=== PATIENT | female | born 1965 | race Two or more races ===

== ENCOUNTER 2017-01-27 08:32 | Emergency (ER) | payer OTHER ==
[2017-01-27 08:35] VITALS: BP 146/87; PULSE 80; TEMP 97.5; BMI 36.6
[2017-01-27] MEDS ORDERED: KETOROLAC TROMETHAMINE 60 MG/2 ML VIAL IM ONE (09:32)
[2017-01-27] MEDS ORDERED: KETOROLAC TROMETHAMINE 60 MG/2 ML VIAL ONE (09:34)
--- NOTE | 2017-01-27 09:47 | PDOC ---
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 now is radiating up to her thoracic spine and into her neck muscles. Denies numbness or tingling to hands or feet, denies any nausea or vomiting, no changes in bowel or bladder Occurred: reports: yesterday Severity: reports: mild, moderate Pain Location: reports: back (low back pain with radiation up to neck) Past History - Travel Traveled outside of the country in the last 30 days: No Close contact w/someone who was outside of country & ill: No - Past Medical History Allergies/Adverse Reactions: Allergies Allergy/AdvReac Type Severity Reaction Status Date / Time No Known Allergies Allergy Verified 01/27/17 08:35 Home Medications: Ambulatory Orders Cyclobenzaprine HCl [Flexeril 10 mg] 10 mg PO BID PRN #14 tablet 01/27/17 Unobtainable 01/27/17 Asthma: Yes Diabetes: Yes - Psycho/Social/Smoking Cessation Hx Anxiety: No Suicidal Ideation: No Smoking Status: No Smoking History: Never smoked Number of Cigarettes Smoked Daily: 0 Hx Alcohol Use: No Drug/Substance Use Hx: No Substance Use Type: None Trauma Specific PMHX - Complaint Specific PMHX Back Injury: Yes Neck Injury: Yes Review of Systems - Review of Systems Able to Perform ROS?: Yes Is the patient limited Argentine proficient: Yes Constitutional: Yes: See HPI. No: Symptoms Reported, Fever, Malaise HEENTM: Yes: See HPI. No: Symptoms Reported Respiratory: Yes: See HPI, Cough Musculoskeletal: Yes: Symptoms Reported, See HPI, Back Pain, Muscle Weakness Neurological: Yes: See HPI. No: Symptoms reported, Headache All Other Systems: Reviewed and Negative *Physical Exam - Vital Signs Last Vital Signs Temp Pulse Resp BP Pulse Ox 97.5 F L 80 18 146/87 98 01/27/17 08:33 01/27/17 08:33 01/27/17 08:33 01/27/17 08:33 01/27/17 08:33 - Physical Exam General Appearance: Yes: Nourished, Appropriately Dressed, Apparent Distress, Mild Distress, Moderate Distress HEENT: positive: CHICO, Normal ENT Inspection, TMs Normal, Pharynx Normal Neck: positive: Tender, Supple. negative: Lymphadenopathy (R), Lymphadenopathy (L) Respiratory/Chest: positive: Lungs Clear, Normal Breath Sounds Cardiovascular: positive: Regular Rate Gastrointestinal/Abdominal: positive: Soft Musculoskeletal: positive: Normal Inspection, Muscle Spasm (palpable spasm and reproduced tenderness along the right paravertebral spinous muscles primarily lumbar spine, with some radiation up through scapular area. No true bony tenderness, range of motion is mildly limited secondary to the spasm. Neurovascular intact to extremities) Extremity: positive: Normal Capillary Refill, Normal Inspection, Normal Range of Motion Integumentary: positive: Normal Color, Dry, Warm Neurologic: positive: cio II-XII NML intact, Fully Oriented, Alert, Normal Mood/ Affect, Normal Response, Motor Strength 11/13 ED Treatment Course - Medications Given in the ED: ED Medications Discontinued Medications Generic Name Dose Route Start Last Admin Trade Name Freq PRN Reason Stop Dose Admin Ketorolac Tromethamine 60 mg 01/27/17 09:32 01/27/17 09:30 Toradol Injection - IM 01/27/17 09:33 60 mg ONCE ONE Administration Progress Note - Progress Note Progress Note: Back strain, will treat with NSAIDs and cyclobenzaprine *DC/Admit/Observation/Transfer Diagnosis at time of Disposition: Low back strain Qualifiers: Encounter type: initial encounter Qualified Code(s): S39.012A - Strain of muscle, fascia and tendon of lower back, initial encounter - Discharge Dispostion Disposition: HOME Condition at time of disposition: Stable Admit: No - Prescriptions Prescriptions: Cyclobenzaprine HCl [Flexeril 10 mg] 10 mg PO BID PRN #14 tablet PRN Reason: spasm - Patient Instructions Printed Discharge Instructions: DI for Back Strain or Sprain Additional Instructions: Rest, no heavy lifting or exercise until pain is resolved Hot soaks to neck and low back as often as possible/hot showers or Jacuzzis No massage or therapy until spasm is gone Continue ibuprofen 2-200 mg tablets every 6 hours for the next 3 days then as needed for pain and swelling Cyclobenzaprine 1-10mg every 8 hours as needed for spasm If not significant improvement within 24 hours with medication and rest regime, followup with private physician for change in medications and /or therapy. - Post Discharge Activity Work/School Note: Back to Work
== END 2017-01-27 09:53 | disposition home or self-care (01) ==
LOC: JERFT 08:32
PROC: 3E0233Z Introduction of Anti-inflammatory into Muscle, Percutaneous Approach (ICD-10-PCS; principal; 2017-01-27)
DX: S39.012A Strain of muscle, fascia and tendon of lower back, initial encounter (principal); X58.XXXA Exposure to other specified factors, initial encounter; Y93.89 Activity, other specified; Y92.9 Unspecified place or not applicable; Y99.0 Civilian activity done for income or pay; J45.909 Unspecified asthma, uncomplicated; E11.9 Type 2 diabetes mellitus without complications
CPT/HCPCS: 99281-25

== ENCOUNTER 2018-09-15 13:09 | Emergency (ER) | payer OTHER ==
[2018-09-15 13:23] VITALS: BP 101/73; PULSE 90; TEMP 98.3; BMI 33.7
--- NOTE | 2018-09-15 13:58 | PDOC ---
History of Present Illness - General Chief Complaint: Cold Symptoms Stated Complaint: COLD SYMPTOMS Time Seen by Provider: 09/15/18 13:44 History Source: Patient - History of Present Illness Initial Comments: 09/15/18 14:45 52-year-old female with nasal congestion, cough 5-6 days. Patient reports cough increasing. Denies shortness of breath, diaphoresis, chest pain, nausea, vomiting. past medical historu of IDDM Past History - Past Medical History Allergies/Adverse Reactions: Allergies Allergy/AdvReac Type Severity Reaction Status Date / Time No Known Allergies Allergy Verified 01/27/17 08:35 Home Medications: Ambulatory Orders Cyclobenzaprine HCl [Flexeril 10 mg] 10 mg PO BID PRN #14 tablet 01/27/17 Albuterol Sulfate Inhaler - [Ventolin HFA Inhaler -] 1 - 2 inh IH Q4H PRN #1 inhaler 09/15/18 Azithromycin [Zithromax 250mg Tablets -] 250 mg PO UTDICT #6 tab 09/15/18 Benzonatate [Tessalon Pearls -] 100 mg PO TID PRN #10 capsule 09/15/18 Asthma: Yes Diabetes: Yes - Suicide/Smoking/Psychosocial Hx Smoking Status: No Smoking History: Never smoked Have you smoked in the past 12 months: No Number of Cigarettes Smoked Daily: 0 Information on smoking cessation initiated: No Hx Alcohol Use: No Drug/Substance Use Hx: No Substance Use Type: None Review of Systems - Review of Systems Able to Perform ROS?: Yes Is the patient limited [place]oth[place] proficient: No Constitutional: No: Symptoms Reported, See HPI, Chills, Diaphoresis, Fever, Loss of Appetite, Malaise, Night Sweats, Weakness, Weight Stable, Unintentional Wgt. Loss, Unexplained wgt Loss, Other HEENTM: Yes: Nose Congestion Respiratory: Yes: Cough Cardiac (ROS): No: Symptoms Reported, See HPI, Chest Pain, Edema, Irregular Heart Rate, Lightheadedness, Palpitations, Syncope, Chest Tightness, Other ABD/GI: No: Symptoms Reported, See HPI, Abdominal Distended, Abd. Pain w/ defecation, Blood Streaked Bowels, Constipated, Diarrhea, Difficulty Swallowing , Nausea, Poor Appetite, Poor Fluid Intake, Rectal Bleeding, Vomiting, Indigestion, Abdominal cramping, Tarry Stools, Other : No: Symptoms Reported, See HPI, Burning, Dysuria, Discharge, Frequency, Flank Pain, Hematuria, Incontinence, Pain, Urgency, Testicular Mass, Testicular Swelling, Lesions, Testicular Pain, Other *Physical Exam - Vital Signs Last Vital Signs Temp Pulse Resp BP Pulse Ox 98.3 F 90 20 101/73 100 09/15/18 13:19 09/15/18 13:19 09/15/18 13:19 09/15/18 13:19 09/15/18 13:19 - Physical Exam General Appearance: Yes: Appropriately Dressed Respiratory/Chest: positive: Lungs Clear, Normal Breath Sounds Cardiovascular: positive: Regular Rhythm, Regular Rate Gastrointestinal/Abdominal: positive: Normal Bowel Sounds, Soft Musculoskeletal: positive: Normal Inspection Extremity: positive: Normal Capillary Refill, Normal Inspection, Normal Range of Motion Integumentary: positive: Normal Color, Dry, Warm Neurologic: positive: Fully Oriented, Alert, Normal Mood/Affect Moderate Sedation - Procedure Monitoring Vital Signs: Procedure Monitoring Vital Signs Temperature 98.3 F 09/15/18 13:19 Pulse Rate 90 09/15/18 13:19 Respiratory Rate 20 09/15/18 13:19 Blood Pressure 101/73 09/15/18 13:19 O2 Sat by Pulse Oximetry (%) 100 09/15/18 13:19 Progress Note - Progress Note Progress Note: A acute bronchitis P: chest xray albuterol azithromycin *DC/Admit/Observation/Transfer Diagnosis at time of Disposition: Bronchitis - Discharge Dispostion Disposition: HOME - Prescriptions Prescriptions: Albuterol Sulfate Inhaler - [Ventolin HFA Inhaler -] 1 - 2 inh IH Q4H PRN #1 inhaler PRN Reason: Cough Azithromycin [Zithromax 250mg Tablets -] 250 mg PO UTDICT #6 tab Benzonatate [Tessalon Pearls -] 100 mg PO TID PRN #10 capsule PRN Reason: Cough - Referrals Referrals: Amina Mayberry MD [Primary Care Provider] - Call tomorrow - Patient Instructions Printed Discharge Instructions: DI for Acute Bronchitis Additional Instructions: drink plenty of fluids use albuterol inhaler every 4-6 hours as needed for cough take azithromycin as prescribed. follow up with your doctor - Post Discharge Activity Forms/Work/School Notes: Back to Work
[2018-09-15] MEDS ORDERED: ALBUTEROL SO4 0.083% IH SOL 2.5 MG/3 ML VIAL.NEB. NEB ONE ×2 (14:06→14:23)
--- NOTE | 2018-09-17 09:52 | EKG ---
Test Reason : Blood Pressure : / mmHG Vent. Rate : 078 BPM Atrial Rate : 078 BPM P-R Int : 158 ms QRS Dur : 076 ms QT Int : 380 ms P-R-T Axes : 035 040 013 degrees QTc Int : 433 ms NORMAL SINUS RHYTHM CANNOT RULE OUT ANTERIOR INFARCT , AGE UNDETERMINED ABNORMAL ECG NO PREVIOUS ECGS AVAILABLE Confirmed by DYANA REGALADO MD ([id number]) on 09/17/2018 9:52:26 AM Referred By: Confirmed By:DYANA REGALADO MD
== END 2018-09-15 15:12 | disposition home or self-care (01) ==
LOC: JERFT 13:09
PROC: 3E0F7GC Introduction of Other Therapeutic Substance into Respiratory Tract, Via Natural or Artificial Opening (ICD-10-PCS; principal; 2018-09-15)
DX: J40 Bronchitis, not specified as acute or chronic (principal); E10.9 Type 1 diabetes mellitus without complications; Z79.4 Long term (current) use of insulin
CPT/HCPCS: 71046-TC-FY; 93005; 93010; 99281-25

== ENCOUNTER 2018-12-17 00:43 | Emergency (ER) | payer OTHER ==
[2018-12-17 00:57] VITALS: BP 130/86; PULSE 90; TEMP 98.4; BMI 33.3
[2018-12-17] MEDS ORDERED: SODIUM CHLORIDE 1,000 ML IV STA ×2 (01:52→03:02)
[2018-12-17 02:13] LABS: BASO % 1.2 % (0-2.0); EOS % 0.5 % (0-4.5); HEMATOCRIT 43.8 % (32.4-45.2); HEMOGLOBIN 14.7 GM/dL (10.7-15.3); LYMPH % 30.6 % (8-40); MCH 28.7 pg (25.7-33.7); MCHC 33.6 g/dl (32.0-36.0); MEAN CELL VOLUME 85.5 fl (80-96); MEAN PLT VOLUME 9.3 fl (7.5-11.1); MONO % 5.1 % (3.8-10.2); NEUT % 62.6 % (42.8-82.8); RBC 5.12 M/mm3 (3.60-5.2); WHITE BLOOD COUNT 8.6 K/mm3 (4.0-10.0)
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
[2018-12-17 02:43] LABS: PH,URINE 6.5 (5.0-8.0); URINE APPEARANCE CLEAR; URINE BILIRUBIN NEGATIVE (NEGATIVE); URINE COLOR YELLOW; URINE GLUCOSE (UA) 3+ (NEGATIVE); URINE KETONE NEGATIVE (NEGATIVE); URINE LEUK ESTERASE NEGATIVE (NEGATIVE); URINE NITRITE NEGATIVE (NEGATIVE); URINE PROTEIN NEGATIVE (NEGATIVE)
[2018-12-17 02:45] LABS: HCG,QUALITATIVE URINE Negative
[2018-12-17 02:50] LABS: ALBUMIN 3.5 g/dl (3.4-5.0); BILIRUBIN,TOTAL 0.3 mg/dL (0.2-1); BLOOD UREA NITROGEN 13.5 mg/dL (7-18); CALCIUM 8.8 mg/dL (8.5-10.1); CREATININE 0.7 mg/dL (0.55-1.3); POTASSIUM 4.4 mmol/L (3.5-5.1); TOT PROT 6.9 g/dl (6.4-8.2)
[2018-12-17 03:19] LABS: PLATELET COUNT 183 K/MM3 (134-434); PLATELET ESTIMATE ADEQUATE
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
== END 2018-12-17 04:37 | disposition home or self-care (01) ==
LOC: JER 00:43
PROC: 3E0337Z Introduction of Electrolytic and Water Balance Substance into Peripheral Vein, Percutaneous Approach (ICD-10-PCS; principal; 2018-12-17)
DX: E11.65 Type 2 diabetes mellitus with hyperglycemia (principal); Z79.4 Long term (current) use of insulin; Z79.84 Long term (current) use of oral hypoglycemic drugs; S70.11XA Contusion of right thigh, initial encounter; S40.021A Contusion of right upper arm, initial encounter; Y04.2XXA Assault by strike against or bumped into by another person, initial encounter; Y93.89 Activity, other specified; Y92.89 Other specified places as the place of occurrence of the external cause; Y99.8 Other external cause status
CPT/HCPCS: 36415; 80053; 81003; 82962; 84703; 85025; 96360; 96361; 99283-25; J7030

== ENCOUNTER 2019-04-30 10:15 | Emergency (ER) | payer OTHER ==
[2019-04-30 10:19] VITALS: BP 123/79; PULSE 65; TEMP 97.5; BMI 31.6
--- NOTE | 2019-04-30 10:48 | PDOC ---
History of Present Illness - General Chief Complaint: Pain Stated Complaint: LT KNEE PAIN Time Seen by Provider: 04/30/19 10:21 History Source: Patient - History of Present Illness Occurred: reports: last week Severity: Yes: moderate Lower Extremity Pain Location: left: knee Past History - Past Medical History Allergies/Adverse Reactions: Allergies Allergy/AdvReac Type Severity Reaction Status Date / Time No Known Allergies Allergy Verified 04/30/19 10:18 Home Medications: Ambulatory Orders Insulin Glargine,Hum.rec.anlog [Basaglar Kwikpen U-100] 100 unit SQ HS 12/17/18 Metformin HCl [Glucophage] 500 mg PO BID 12/17/18 Asthma: Yes COPD: No Diabetes: Yes - Immunization History Td Vaccination: Yes TDAP Vaccination: Yes Immunization Up to Date: Yes - Psycho Social/Smoking Cessation Hx Smoking Status: No Smoking History: Never smoked Have you smoked in the past 12 months: No Number of Cigarettes Smoked Daily: 0 Hx Alcohol Use: No Drug/Substance Use Hx: No Substance Use Type: None Review of Systems - Review of Systems Constitutional: No: Chills, Fever Respiratory: No: Shortness of Breath Cardiac (ROS): No: Chest Pain, Palpitations Musculoskeletal: Yes: Joint Pain, Joint Swelling *Physical Exam - Vital Signs Last Vital Signs Temp Pulse Resp BP Pulse Ox 97.5 F L 65 18 123/79 99 04/30/19 10:16 04/30/19 10:16 04/30/19 10:16 04/30/19 10:16 04/30/19 10:16 - Physical Exam General Appearance: Yes: Appropriately Dressed. No: Apparent Distress HEENT: positive: Normal Voice Neck: positive: Supple Respiratory/Chest: negative: Respiratory Distress Extremity: positive: Normal Range of Motion, Tender, Swelling (minimal swelling to medial L knee, no obvious effusion, no hot, red joint, FROMI, bearing weight w/ slight limp). negative: Erythema Integumentary: positive: Dry, Warm Neurologic: positive: Fully Oriented, Alert, Normal Mood/Affect ED Treatment Course - RADIOLOGY Radiology Studies Ordered: Category Date Time Status KNEE 2 POS-LEFT [RAD] Stat Radiology 04/30/19 10:30 Ordered Medical Decision Making - Medical Decision Making 04/30/19 10:38 53-year-old female history of insulin-dependent diabetic, here with atraumatic L knee pain x1 week, located to anteromedial knee, constant, worse when she is at rest and actually better "the more I move" per pt. Also notices some swelling. No fever or chills. No h/o similar condition. No known h/o arthritis , gout, septic joint. Took Tylenol for pain prior to coming in today. see exam M/l MSK knee pain, i.e arthritis, overuse, strain,etc No trauma No h/o gout No h/o septic joint No hot, red joint on exam XR w/ possibly mild suprapatella effusion per rad report -Pt controlled w/ tylenol [employer] -NASIM applied -dc w/ pain control and pmd f/u Discharge - Discharge Information Problems reviewed: Yes Clinical Impression/Diagnosis: Knee pain Qualifiers: Chronicity: acute Laterality: left Qualified Code(s): M25.562 - Pain in left knee Condition: Good Disposition: HOME - Follow up/Referral - Patient Discharge Instructions Patient Printed Discharge Instructions: DI for Knee Pain Additional Instructions: Please take motrin or tylenol as needed for pain and follow up with your PMD for further evaluation/management - Post Discharge Activity
== END 2019-04-30 11:10 | disposition home or self-care (01) ==
LOC: JERFT 10:15
DX: M25.562 Pain in left knee (principal); E11.9 Type 2 diabetes mellitus without complications; Z79.4 Long term (current) use of insulin; J45.909 Unspecified asthma, uncomplicated
CPT/HCPCS: 73560-TC-LT-FY; 99282-25